=== PATIENT | female | born 1985 | race Caucasian/White ===

== ENCOUNTER 2016-06-29 06:00 | Inpatient (IN) | payer BC ==
[2016-06-29] MEDS ORDERED: CARBOPROST TROMETHAMINE 250 MCG/ML 1 ML AMP IM PRN (06:43)
[2016-06-29] MEDS ORDERED: LIDOCAINE 1% (PF) 10 MG/ML (30 ML SDV) SQ PRN (06:43)
[2016-06-29] MEDS ORDERED: OXYTOCIN 10 UNIT/ML 1 ML VIAL IM PRN (06:43)
[2016-06-29] MEDS ORDERED: METHYLERGONOVINE 0.2 MG/ML 1 ML AMP IM PRN (06:43)
[2016-06-29] MEDS ORDERED: TERBUTALINE 1 MG/ML VIAL SQ PRN (06:43)
[2016-06-29] MEDS ORDERED: OXYTOCIN 30 UNITS/500 ML NS 30 UNIT in SALINE 1 500ML.BAG IV SCH (06:45)
[2016-06-29 06:52] VITALS: BMI 40.0
[2016-06-29] MEDS: LACTATED RINGERS 1,000 ML IV SCH ×4 (06:54→23:49)
[2016-06-29 07:17] LABS: Basophils % (A) 0 %; CH 33.7; CHCM 36.4; Eosinophils # (A) 0.1 k/uL (0-0.7); Eosinophils % (A) 1 %; HCT 32.9 % (34.0-46.0); HDW 3.33; HGB 11.8 gm/dL (11.4-16.0); Luc # (Auto) 0.37; Luc % (Auto) 4; Lymphocytes # (A) 2.1 k/uL (1.0-4.8); Lymphocytes % (A) 24 %; MCH 33.4 pg (25.0-35.0); MCHC 35.8 g/dL (31.0-37.0); MCV 93.2 fL (80.0-100.0); Mean Platelet Volume 9.1; Monocytes # (A) 0.4 k/uL (0-1.0); Monocytes % (A) 4 %; Neutrophils % (A) 67 %; RBC 3.53 m/uL (3.80-5.40); RDW 13.8 % (11.5-15.5); WBC 8.9 k/uL (3.8-10.6); WBC (Perox) 9.58
[2016-06-29 07:27] LABS: Glucose,Whole Blood 92 mg/dL (75-99)
[2016-06-29] MEDS ORDERED: BUTORPHANOL 1 MG/ML 1 ML VIAL IV PRN (09:38)
--- NOTE | 2016-06-29 09:45 | P.HPOB ---
History of Present Illness H&P Date: 06/29/16 Chief Complaint: 39-5/7 weeks, gestational diabetes, induction The patient is a 30-year-old 1 para 0 admitted at 39-5/7 weeks as established by last menstrual period and confirmed by a week ultrasound per she is admitted for induction of labor with a relatively favorable cervix. Her has been complicated by gestational diabetes which has been well controlled with diet alone. She additionally was ultimately diagnosed with -induced hypertension which did not require medications. She is also known to be Rh- and received RhoGAM at 28 weeks. On labor and delivery, all signs are reassuring. Group B strep status is negative. Obstetrical history: 1 para 0 with current statistics listed above. EDC of 07/01/2016 was established by last menstrual period and confirmed by 8 week ultrasound. Laboratory workup demonstrates a blood type of O- with a negative antibody screen. Rubella status is immune. Early Glucola was significantly elevated making the diagnosis of gestational diabetes. Group B strep status is negative. Gynecologic history: Unremarkable with no history of any infections to include STDs. Review of Systems Review of systems is confined to history of present illness. Past Medical History Past Medical History: Supraventricular Tachycardia (SVT) Additional Past Medical History / Comment(s): Gestational Diabetes 12/19, History of Any Multi-Drug Resistant Organisms: None Reported Past Surgical History: No Surgical Hx Reported Past Anesthesia/Blood Transfusion Reactions: No Reported Reaction Past Psychological History: Anxiety Smoking Status: Never smoker Past Alcohol Use History: None Reported Past Drug Use History: None Reported - Past Family History Father Family Medical History: Diabetes Mellitus, Hypertension Mother Family Medical History: Mitral Valve Prolapse (MVP) Brother(s) Family Medical History: Myocardial Infarction ([place]) Medications and Allergies Home Medications Medication Instructions Recorded Confirmed Type Pnv with Ca,No.72/Iron/FA 1 tab PO DAILY 12/26/15 06/29/16 History [ Plus Tablet] Allergies Allergy/AdvReac Type Severity Reaction Status Date / Time No Known Allergies Allergy Verified 06/29/16 06:42 Exam - Vital Signs Vital signs: Vital Signs Temp Pulse Resp BP 06/29/16 06:44 97.2 F L 115 H 16 159/105 Intake and Output 06/28/16 06/29/16 06/29/16 22:59 06:59 14:59 Other: Weight 102.512 kg In general, this is a well-developed, mildly obese white female in no acute distress. Her heart has a regular rhythm and rate without murmur. Her lungs are clear to auscultation bilaterally in all johnson. Her abdomen is gravid, nondistended, has normal active bowel sounds, is soft, nontender, and without any palpable masses aside from the uterine fundus. Her extremities without any cyanosis, clubbing, or edema and are nontender to palpation bilaterally. Digital cervical examination on straights her cervix to be 2-3 cm dilated, 70% effaced, with the vertex in presentation at -2-3 station. Artificial rupture of membranes is carried out demonstrating a small amount of clear fluid. Results Result Diagrams: 06/29/16 06:58 Abnormal Lab Results - Last 24 Hours (Table) 06/29/16 Range/Units 06:58 RBC 3.53 L (3.80-5.40) m/uL Hct 32.9 L (34.0-46.0) % Assessment and Plan (1) Term Status: Acute (2) Gestational diabetes Status: Acute Plan: The patient is admitted for induction of labor. She does understand that the conditions are somewhat elective despite her diabetes. She also was the made to understand that the risk for section may be slightly higher under the circumstances. She will have close maternal and surveillance and expectant management will be practiced. She is a good candidate for either IV or epidural analgesia, whichever she may choose.
[2016-06-29] MEDS ORDERED: BUPIVACAINE (PF) 0.25% 30 ML VIAL ONE (16:57)
[2016-06-29] MEDS ORDERED: fentaNYL (PF) 50 MCG/ML 5 ML AMP ONE (16:57)
[2016-06-29] MEDS ORDERED: SODIUM CHLORIDE 0.9% 100 ML BAG ONE (16:57)
[2016-06-29] MEDS ORDERED: BUPIVACAINE (PF) 0.25% 25 ML, fentaNYL (PF) 200 MCG in SODIUM CHLORIDE 0.9% 71 ML EPIDURAL ONE (17:28)
[2016-06-29] MEDS ORDERED: ceFAZolin 2 GM in SODIUM CHLORIDE 0.9% 100 ML IVPB ONE (20:36)
[2016-06-29] MEDS ORDERED: CITRIC ACID-SODIUM CITRATE 15 ML CUP PO ONE (20:36)
[2016-06-29] MEDS ORDERED: PHENYLEPHRINE-0.9% NACL SYG 1 MG/10 ML SYRINGE ONE (20:59)
[2016-06-29] MEDS ORDERED: ceFAZolin 1,000 MG VIAL ONE (20:59)
[2016-06-29] MEDS ORDERED: KETOROLAC 30 MG/ML 1 ML VIAL ONE (20:59)
[2016-06-29] MEDS ORDERED: MORPHINE SULFATE (PF) 0.3 MG/0.3 ML SYR ONE (20:59)
[2016-06-29] MEDS ORDERED: OXYTOCIN 10 UNIT/ML 1 ML VIAL IM ONE (20:59)
[2016-06-29] MEDS ORDERED: NALBUPHINE 10 MG/ML AMPUL ONE (20:59)
[2016-06-29] MEDS ORDERED: ONDANSETRON 4 MG/2 ML VIAL ONE (20:59)
[2016-06-29] MEDS ORDERED: NALOXONE 0.4 MG/ML 1 ML VIAL IV PRN ×2 (21:24→22:01)
[2016-06-29] MEDS ORDERED: MORPHINE SULFATE 4 MG/ML SYRINGE IVP PRN (21:24)
[2016-06-29] MEDS ORDERED: diphenhydrAMINE 50 MG/ML 1 ML VIAL IVP PRN ×3 (21:24→22:01)
[2016-06-29] MEDS ORDERED: ONDANSETRON 4 MG/2 ML VIAL IVP PRN ×2 (21:24→22:01)
[2016-06-29] MEDS ORDERED: ZOLPIDEM 5 MG TAB PO PRN (22:01)
[2016-06-29] MEDS ORDERED: diphenhydrAMINE 50 MG CAP PO PRN (22:01)
[2016-06-29] MEDS ORDERED: diphenhydrAMINE 25 MG CAP PO PRN (22:01)
[2016-06-29] MEDS ORDERED: KETOROLAC 30 MG/ML 1 ML VIAL IVP PRN (22:01)
[2016-06-29] MEDS ORDERED: METOCLOPRAMIDE 5 MG/ML 2 ML VIAL IVP PRN (22:01)
[2016-06-29] MEDS ORDERED: Acetaminophen-Codeine 300-30mg TAB PO PRN ×2 (22:01)
[2016-06-29] MEDS ORDERED: SIMETHICONE 80 MG CHEWABLE PO PRN (22:01)
[2016-06-29] MEDS ORDERED: DIPH,PERTUS(ACELL)TETVAC-LF 0.5 ML VIAL IM ONE (22:04)
--- NOTE | 2016-06-29 22:10 | P.OP ---
Date of Procedure: 06/29/16 Preoperative Diagnosis: #1. 39-5/7 weeks, induction #2. Gestational diabetes #3. -induced hypertension #4. Arrest of descent Postoperative Diagnosis: Same plus #5. Left occiput transverse #6. Nuchal cord 1 Procedure(s) Performed: Primary low-transverse section Anesthesia: spinal Surgeon: Mingo Smallwood Central Office Supervisor #1: Yu Antonio Estimated Blood Loss (ml): 800 IV fluids (ml): 800 Urine output (ml): 200 Pathology: other (Placenta) Condition: stable Disposition: floor Operative Findings: Preoperatively, the patient ultimately did reach complete with the head remaining at -2 station. On examination, the head sutures were noted to be overriding and the patient was thought to have a contracted pelvis. She was unable to move the baby at all with pushing efforts. The decision was made to proceed to the operating room for primary low-transverse section which was carried out in an uncomplicated fashion. She was delivered of a viable 8 lbs. 2 oz. baby boy with Apgars of 8 at 1 minute and 9 at 5 minutes in the left occiput transverse position. There was a nuchal cord 1 which was reduced after delivery of the head. The placenta was delivered manually, intact, and grossly normal with a grossly normal three-vessel cord. The uterus, tubes, and ovaries were entirely normal to inspection. Description of Procedure: The patient was prepped and draped in usual fashion after spinal anesthesia was administered by the anesthesiologist. A Pfannenstiel incision was made and extended into the abdominal cavity without difficulty. The bladder peritoneum was noted to be distal to the site of the incision was left intact. A 2 cm incision was made in the transverse plane of the lower uterine segment to enter the uterus at which time clear fluid was again noted. The incision was extended in both directions bluntly. The head was encountered in the pelvis fairly deeply was elevated up and through the incision and noted to be in the left occiput transverse position. A nuchal cord was noted and reduced. The nose and mouth were thoroughly suctioned. The remainder of the was delivered onto the surgical field where the cord was doubly clamped, cut, and the passed for resuscitative measures with weight and Apgars as noted above. cord blood was collected for the necessity for RhoGAM. A segment of cord was doubly clamped, cut, and set aside should cord gases become necessary. The placenta was delivered manually and intact as above. The uterus was exteriorized and the interior cavity of the uterus swept of any remaining placental or membranous fragments. The margins of the incision were grasped with Haywood clamps and the incision closed in 2 layers. The first layer was a running locking stitch of 0 chromic catgut from margin to margin followed by a running imbricating layer of 0 chromic catgut from margin to margin. Following the 2 layer closure, there was noted to be some bleeding from both angles which was made hemostatic with the several [id number] stitches of 0 chromic catgut. Any small points of bleeding were made hemostatic with the Bovie. The posterior cul-de-sac was then suctioned using a guard. The uterus was replaced within the abdominal cavity and the gutters swept of any remaining blood, fluid, or clot. The incision was again reexamined and found to be hemostatic. The parietal peritoneum was loosely reapproximated in the layer of muscles examined and found to be hemostatic. The fascia was closed with 2 running stitches of 0 Vicryl proceeding from the lateral margins to the midpoint. The subcutaneous tissues were irrigated, made hemostatic with the Bovie, and reapproximated with a running stitch of 30 plain catgut. The skin was reapproximated with a running subcuticular stitch of 4-0 Vicryl from margin to margin followed by half-inch Steri-Strips placed with Mastisol. Estimated blood loss for the entire case was approximately 800 mL. There were no complications. All sponge, instrument, and needle counts were correct. Both mother and infant are resting comfortably in recovery.
[2016-06-30] MEDS: ACETAMINOPHEN TAB 325 MG TAB PO PRN ×2 (03:46→15:19)
[2016-06-30] MEDS: LACTATED RINGERS 1,000 ML IV SCH ×2 (06:32→22:30)
[2016-06-30] MEDS: SENNOSIDES-DOCUSATE SODIUM 1 EACH TAB PO SCH ×2 (08:07→22:31)
[2016-06-30 08:08] LABS: Basophils % (A) 0 %; CH 33.2; CHCM 34.8; Eosinophils % (A) 0 %; HCT 28.4 % (34.0-46.0); HDW 3.22; Luc # (Auto) 0.26; Luc % (Auto) 3; Lymphocytes # (A) 1.1 k/uL (1.0-4.8); Lymphocytes % (A) 10 %; MCHC 35.4 g/dL (31.0-37.0); MCV 96.2 fL (80.0-100.0); Mean Platelet Volume 8.5; Monocytes # (A) 0.4 k/uL (0-1.0); Monocytes % (A) 4 %; Neutrophils # (A) 8.5 k/uL (1.3-7.7); Neutrophils % (A) 83 %; RBC 2.95 m/uL (3.80-5.40); RDW 13.9 % (11.5-15.5); WBC 10.3 k/uL (3.8-10.6); WBC (Perox) 10.51
--- NOTE | 2016-06-30 08:51 | P.PNOBGPC ---
Subjective - Subjective Patient reports: Reports appetite normal, Reports voiding normally, Reports pain well controlled, Reports ambulating normally : doing well, nursing well Objective - Vital Signs Latest vital signs: Vital Signs Temp Pulse Resp BP Pulse Ox 06/30/16 08:00 98.3 F 101 H 16 151/89 06/30/16 03:58 99.9 F H 114 H 16 146/88 06/30/16 02:00 98 06/30/16 00:00 109 H 16 140/77 98 06/29/16 23:30 98.0 F 126 H 16 146/77 06/29/16 23:00 122 H 16 155/78 06/29/16 22:45 107 H 16 156/87 06/29/16 22:30 105 H 16 159/77 06/29/16 22:24 97 06/29/16 22:15 127 H 16 116/71 06/29/16 22:00 98.4 F 117 H 16 115/60 06/29/16 21:24 98 Intake and Output 06/29/16 06/30/16 06/30/16 22:59 06:59 14:59 Intake Total 1000 Output Total 1600 125 Balance -1600 875 Intake: Intake, IV Titration 1000 Amount Lactated Ringers 1,000 ml 1000 @ 125 mls/hr IV .Q8H [facility] Rx#:[id number] Output: Urine 125 Uretheral (Che) 125 Estimated Blood Loss 1600 Other: # Voids 60 1 - Exam Lungs: bilateral: normal Chest: Normal S1, Normal S2 Extremities: Present: normal Abdomen: Present: normal appearance, soft. Absent: distention, tenderness Incision: Present: normal, dry, intact Uterus: Present: normal, firm (The uterine fundus is time and nontender below the umbilicus.) - Labs Labs: Abnormal Lab Results - Last 24 Hours (Table) 06/30/16 Range/Units 07:52 RBC 2.95 L (3.80-5.40) m/uL Hgb 10.0 L D (11.4-16.0) gm/dL Hct 28.4 L (34.0-46.0) % Neutrophils # 8.5 H (1.3-7.7) k/uL Assessment and Plan (1) Term Current Visit: Yes Status: Acute Code(s): Z34.80 - ENCOUNTER FOR SUPRVSN OF NORMAL , UNSP TRIMESTER SNOMED Code(s): 10253871 (2) Gestational diabetes Current Visit: Yes Status: Acute Code(s): O24.419 - GESTATIONAL DIABETES MELLITUS IN , UNSP CONTROL SNOMED Code(s): 59347618 (3) S/P section Narrative/Plan: Continue routine postoperative care. Her diet has been advanced to regular and she has been encouraged ambulate in the halls at least 4 times daily if not more. Her IV will be locked but kept in place for the remainder of the day. Possible discharge home tomorrow pending applications. Current Visit: Yes Status: Acute Code(s): Z98.891 - HISTORY OF UTERINE SCAR FROM PREVIOUS SURGERY SNOMED Code(s): 016555141
--- NOTE | 2016-06-30 09:11 | P.PN ---
Progress Note - Text Date: 06/30/2016 Time: 700 The patient is status post section Vital signs stable VAS: 0-10 Patient has no complaints of pain. The patient incurred some minimal itching yesterday, this itching is now subsiding. Pain meds to be managed by service.
[2016-06-30] MEDS: IBUPROFEN 600 MG TAB PO PRN ×2 (11:47→19:48)
[2016-07-01] MEDS: ACETAMINOPHEN TAB 325 MG TAB PO PRN ×2 (00:58→08:29)
[2016-07-01] MEDS: IBUPROFEN 600 MG TAB PO PRN ×2 (06:04→12:40)
[2016-07-01] MEDS: SENNOSIDES-DOCUSATE SODIUM 1 EACH TAB PO SCH ×2 (08:39→17:01)
--- NOTE | 2016-07-01 08:40 | P.DS ---
Providers Date of admission: 06/29/16 06:25 Expected date of discharge: 07/01/16 Attending physician: Mingo Smallwood Primary care physician: Emile Angel - Discharge Diagnosis(es) (1) Term Current Visit: Yes Status: Acute (2) Gestational diabetes Current Visit: Yes Status: Acute (3) S/P section Current Visit: Yes Status: Acute Hospital Course: The patient is a 30-year-old 1 para 0 admitted at 39-5/7 weeks by good dating parameters perches admitted for an induction of labor with favorable cervix. Her has been uncomplicated by gestational diabetes well controlled with diet as well as induce hypertension which did not require any medication. She is also Rh- and received RhoGAM at 28 weeks. On labor and delivery, she had Pitocin started followed by artificial rupture of membranes. She made relatively slow progress throughout the day and ultimately , the diagnosis of arrest of dilation and descent was made. She was taken the operating room where she was delivered of a viable 8 lbs. 2 oz. baby boy with Apgars of 8 at 1 minute and 9 at 5 minutes. Her postoperative course was unremarkable with vital signs remaining stable and her temperature was afebrile throughout. She was deemed stable for discharge by and postoperative day #2. She was discharged home to follow-up in the office in 2 weeks for an incision check and 6 weeks routinely. Discharge instructions included calling for any significantly increased bleeding or foul-smelling lochia, significantly increased fever or abdominal pain, perineal complaints, breast complaints, incisional complaints, or anything else that concerned her. She is additionally instructed to have nothing in the vagina for at least 6 weeks time to include intercourse and to abstain from any heavy lifting over the same period of time. She was last instructed to do no driving until off of all pain medications or 2 weeks' time, whichever came first. She understood her instructions and agrees to follow up as noted above. She was provided with prescription for Tylenol No. 3, 1-2 by mouth every 6 hours when necessary pain, #30 dispensed with no refills. She is additionally to use [id number] analgesic pain medications as necessary and to continue vitamins as she has opted to breast-feed. Maternal blood type is O- and cord blood was sent for evaluation for the necessity of RhoGAM prior to discharge. Rubella status is immune. Discharge hemoglobin and hematocrit were 10.0 and 28.4 respectively. She was advised that iron sulfate daily for a month would be of use. Procedures: #1. Pitocin induction #2. Artificial rupture of membranes #3. Epidural analgesia #4. Primary low-transverse section Patient Condition at Discharge: Good Plan - Discharge Summary New Discharge Prescriptions: Acetaminophen-Codeine 300-30mg [Tylenol #3] 2 tab PO Q6H PRN #30 tablet PRN Reason: Pain Discharge Medication List Pnv with Ca,No.72/Iron/FA [ Plus Tablet] 1 tab PO DAILY 12/26/15 [ History] Acetaminophen-Codeine 300-30mg [Tylenol #3] 2 tab PO Q6H PRN #30 tablet [Rx] Follow up Appointment(s)/Referral(s): Mingo Smallwood MD [STAFF PHYSICIAN] - 2 Weeks Discharge Disposition: HOME SELF-CARE
[2016-07-01 16:30] VITALS: BP 129/81; PULSE 80; RESP 20; TEMP 98.3
== END 2016-07-01 18:50 | disposition home or self-care (01) | DRG 766 ==
LOC: 4FBP 06:25
PROVIDERS: ADMIT Obstetrics & Gynecology; ATTEND Obstetrics & Gynecology
PROC: 10D00Z1 Extraction of Products of Conception, Low, Open Approach (ICD-10-PCS; principal; 2016-06-29 21:00)
PROC: 3E033VJ Introduction of Other Hormone into Peripheral Vein, Percutaneous Approach (ICD-10-PCS; principal; 2016-06-29 21:00)
PROC: 00HU33Z Insertion of Infusion Device into Spinal Canal, Percutaneous Approach (ICD-10-PCS; principal; 2016-06-29 21:00)
PROC: 3E0R3CZ (ICD-10-PCS; principal; 2016-06-29 21:00)
PROC: 10907ZC Drainage of Amniotic Fluid, Therapeutic from Products of Conception, Via Natural or Artificial Opening (ICD-10-PCS; principal; 2016-06-29 21:00)
DX: O24.420 Gestational diabetes mellitus in childbirth, diet controlled (principal); O32.4XX0 Maternal care for high head at term, not applicable or unspecified; O62.0 Primary inadequate contractions; O13.4 Gestational [pregnancy-induced] hypertension without significant proteinuria, complicating childbirth; O62.1 Secondary uterine inertia; O69.81X0 Labor and delivery complicated by cord around neck, without compression, not applicable or unspecified; Z37.0 Single live birth; Z3A.39 39 weeks gestation of pregnancy; O65.1 Obstructed labor due to generally contracted pelvis
CPT/HCPCS: 85025; 88307

== ENCOUNTER 2017-10-26 09:40 | Emergency (ER) | payer BC ==
[2017-10-26 09:51] VITALS: RESP 18; TEMP 98.2
[2017-10-26] MEDS ORDERED: SODIUM CHLORIDE 0.9% 500 ML IV STA (10:17)
--- NOTE | 2017-10-26 10:22 | ED ---
General Adult HPI - General Chief complaint: Allergic Reaction Stated complaint: allergic reaction Time Seen by Provider: 10/26/17 10:06 Source: patient, RN notes reviewed, old records reviewed Mode of arrival: ambulatory Limitations: no limitations - History of Present Illness Initial comments: 31-year-old female presents for evaluation of suspected ALLERGIC reaction. Patient has been taking prednisone for the past 4 days and within the past 24 hours she developed symptoms of right-sided neck and jaw pain as well as right- sided chest pain. Patient's symptoms began at rest. She attributed up her prednisone. She is taking prednisone for inflammation secondary to esophageal injury. She states that one month ago she scratched her esophagus with a potato chip and she's been having intermittent throat pain since that time. She also states that over the past 12-24 hours she developed this right-sided chest pain. No fever or chills. No significant vomiting or diarrhea. No abdominal pain. Describes chest pain as a burning. She which seems to cover the whole right side of her chest had an neck. She has history of palpitations for which she takes nadolol. She is currently on control. No other chronic medical problems. - Related Data Home Medications Medication Instructions Recorded Confirmed Falmina 0.1-20 1 tab PO HS 10/26/17 10/26/17 Nadolol [Corgard] 20 mg PO DAILY 10/26/17 10/26/17 methylPREDNISolone Dose Pack See Taper PO DIRECTED 10/26/17 10/26/17 [Medrol Dose Pack] Previous Rx's Medication Instructions Recorded Omeprazole [PriLOSEC] 20 mg PO AC-BID #60 cap 10/26/17 Allergies Allergy/AdvReac Type Severity Reaction Status Date / Time amoxicillin Allergy Rash/Hives Verified 10/26/17 10:20 Penicillins Allergy Rash/Hives Verified 10/26/17 10:20 sulfamethoxazole Allergy Unknown Verified 10/26/17 10:20 [From Bactrim] trimethoprim [From Bactrim] Allergy Unknown Verified 10/26/17 10:20 Review of Systems ROS Statement: Those systems with pertinent positive or pertinent negative responses have been documented in the HPI. ROS Other: All systems not noted in ROS Statement are negative. Past Medical History Past Medical History: Supraventricular Tachycardia (SVT) Additional Past Medical History / Comment(s): Gestational Diabetes 12/19, History of Any Multi-Drug Resistant Organisms: None Reported Past Surgical History: Section Past Anesthesia/Blood Transfusion Reactions: No Reported Reaction Past Psychological History: Anxiety Smoking Status: Never smoker Past Alcohol Use History: None Reported Past Drug Use History: None Reported - Past Family History Father Family Medical History: Diabetes Mellitus, Hypertension Mother Family Medical History: Mitral Valve Prolapse (MVP) Brother(s) Family Medical History: Myocardial Infarction ([place]) General Exam Limitations: no limitations General appearance: alert, in no apparent distress Head exam: Present: atraumatic, normocephalic Eye exam: Present: normal appearance, PERRL ENT exam: Present: normal exam Neck exam: Present: normal inspection. Absent: tenderness, meningismus Respiratory exam: Present: normal lung sounds bilaterally. Absent: respiratory distress, wheezes, chest wall tenderness Cardiovascular Exam: Present: regular rate, normal rhythm GI/Abdominal exam: Present: soft. Absent: distended, tenderness, guarding Extremities exam: Present: normal inspection. Absent: normal capillary refill, pedal edema Back exam: Present: normal inspection, full ROM. Absent: tenderness Neurological exam: Present: alert, oriented X3 Psychiatric exam: Present: normal affect, normal mood Skin exam: Present: warm, dry, intact. Absent: cyanosis, diaphoretic Course Vital Signs 10/26/17 10/26/17 09:49 11:32 Temperature 98.2 F Pulse Rate 75 82 Respiratory 18 18 Rate Blood Pressure 158/98 129/83 O2 Sat by Pulse 98 98 Oximetry EKG Findings - EKG Comments: EKG Findings:: EKG: Normal sinus rhythm, rate of 82, ID interval 154, QRS duration 82, QT 340, QTC 397, no ST segment elevation or depression Medical Decision Making - Medical Decision Making 31-year-old female presenting with right-sided neck and throat pain as well as right-sided chest pain. Symptoms present for approximately 12 hours prior to arrival. EKG is nonischemic. Chest x-ray negative for pneumothorax or airspace disease. Patient's symptoms at the time my evaluation are quite minimal, 2 out of 10. CBC is unremarkable, d-dimer negative, troponin negative. On reevaluation, patient has stable vital signs and is well- appearing. She will start proton pump inhibitor and follow up with gastroenterology at the chance this is esophageal in nature. She will be present with development of fever or worsening pain. Dyspnea. Or lower extremity swelling. - Lab Data Result diagrams: 10/26/17 10:26 10/26/17 10:26 Lab Results 10/26/17 10/26/17 10/26/17 Range/Units 10:26 10: 10:26 WBC 9.6 (3.8-10.6) k/uL RBC 4.97 (3.80-5.40) m/uL Hgb 15.4 (11.4-16.0) gm/dL Hct 43.7 (34.0-46.0) % MCV 88.0 (80.0-100.0) fL MCH 31.0 (25.0-35.0) pg MCHC 35.2 (31.0-37.0) g/dL RDW 12.6 (11.5-15.5) % Plt Count 278 (150-450) k/uL Neutrophils % (Manual) 77 % Lymphocytes % (Manual) 18 % Monocytes % (Manual) 5 % Neutrophils # (Manual) 7.39 (1.3-7.7) k/uL Lymphocytes # (Manual) 1.73 (1.0-4.8) k/uL Monocytes # (Manual) 0.48 (0-1.0) k/uL Nucleated RBCs 0 (0-0) /100 WBC Anisocytosis (manual) Present PT (9.0-12.0) sec INR (<1.2) APTT (22.0-30.0) sec D-Dimer (<0.60) mg/L FEU Sodium 141 (137-145) mmol/L Potassium 4.2 (3.5-5.1) mmol/L Chloride 106 (98-107) mmol/L Carbon Dioxide 23 (22-30) mmol/L Anion Gap 12 mmol/L BUN 16 (7-17) mg/dL Creatinine 0.71 (0.52-1.04) mg/dL Est GFR (CKD-EPI)AfAm >90 (>60 ml/min/1.73 sqM) Est GFR (CKD-EPI)NonAf >90 (>60 ml/min/1.73 sqM) Glucose 92 (74-99) mg/dL Calcium 9.5 (8.4-10.2) mg/dL Magnesium 1.9 (1.6-2.3) mg/dL Total Bilirubin 0.7 (0.2-1.3) mg/dL AST 15 (14-36) U/L ALT 26 (9-52) U/L Alkaline Phosphatase 55 (38-126) U/L Total Creatine Kinase 30 (30-135) U/L CK-MB (CK-2) 0.3 (0.0-2.4) ng/mL CK-MB (CK-2) Rel Index 1.0 Troponin I <0.012 (0.000-0.034) ng/mL Total Protein 7.4 (6.3-8.2) g/dL Albumin 4.5 (3.5-5.0) g/dL Lipase 129 (23-300) U/L Urine HCG, Qual (Not Detectd) 10/26/17 10/26/17 Range/Units 10:26 10:30 WBC (3.8-10.6) k/uL RBC (3.80-5.40) m/uL Hgb (11.4-16.0) gm/dL Hct (34.0-46.0) % MCV (80.0-100.0) fL MCH (25.0-35.0) pg MCHC (31.0-37.0) g/dL RDW (11.5-15.5) % Plt Count (150-450) k/uL Neutrophils % (Manual) % Lymphocytes % (Manual) % Monocytes % (Manual) % Neutrophils # (Manual) (1.3-7.7) k/uL Lymphocytes # (Manual) (1.0-4.8) k/uL Monocytes # (Manual) (0-1.0) k/uL Nucleated RBCs (0-0) /100 WBC Anisocytosis (manual) PT 10.3 (9.0-12.0) sec INR 1.1 (<1.2) APTT 24.1 (22.0-30.0) sec D-Dimer 0.18 (<0.60) mg/L FEU Sodium (137-145) mmol/L Potassium (3.5-5.1) mmol/L Chloride (98-107) mmol/L Carbon Dioxide (22-30) mmol/L Anion Gap mmol/L BUN (7-17) mg/dL Creatinine (0.52-1.04) mg/dL Est GFR (CKD-EPI)AfAm (>60 ml/min/1.73 sqM) Est GFR (CKD-EPI)NonAf (>60 ml/min/1.73 sqM) Glucose (74-99) mg/dL Calcium (8.4-10.2) mg/dL Magnesium (1.6-2.3) mg/dL Total Bilirubin (0.2-1.3) mg/dL AST (14-36) U/L ALT (9-52) U/L Alkaline Phosphatase (38-126) U/L Total Creatine Kinase (30-135) U/L CK-MB (CK-2) (0.0-2.4) ng/mL CK-MB (CK-2) Rel Index Troponin I (0.000-0.034) ng/mL Total Protein (6.3-8.2) g/dL Albumin (3.5-5.0) g/dL Lipase (23-300) U/L Urine HCG, Qual Not Detected (Not Detectd) Disposition Clinical Impression: Chest pain Disposition: HOME SELF-CARE Condition: Good Instructions: Chest Pain (ED) Prescriptions: Omeprazole [PriLOSEC] 20 mg PO AC-BID #60 cap Is patient prescribed a controlled substance at d/c from ED?: No Referrals: Emile Angel DO [Primary Care Provider] - 1-2 days Laurie Su MD [STAFF PHYSICIAN] - 1-2 days Time of Disposition: 12:06
[2017-10-26 10:58] LABS: ALT 26 U/L (9-52); AST 15 U/L (14-36); Albumin 4.5 g/dL (3.5-5.0); Alkaline Phosphatase 55 U/L (38-126); Anion Gap 12 mmol/L; Blood Urea Nitrogen 16 mg/dL (7-17); Calcium 9.5 mg/dL (8.4-10.2); Carbon Dioxide 23 mmol/L (22-30); Chloride 106 mmol/L (98-107); Glucose 92 mg/dL (74-99); HCT 43.7 % (34.0-46.0); HGB 15.4 gm/dL (11.4-16.0); Lipase 129 U/L (23-300); MCHC 35.2 g/dL (31.0-37.0); Magnesium 1.9 mg/dL (1.6-2.3); Platelet Count 278 k/uL (150-450); Potassium 4.2 mmol/L (3.5-5.1); RBC 4.97 m/uL (3.80-5.40); RDW 12.6 % (11.5-15.5); Sodium 141 mmol/L (137-145); Total Bilirubin 0.7 mg/dL (0.2-1.3); Total Protein 7.4 g/dL (6.3-8.2); WBC 9.6 k/uL (3.8-10.6)
[2017-10-26 11:02] LABS: D-Dimer 0.18 mg/L FEU (<0.60); INR 1.1 (<1.2); Partial Thromboplastin Time 24.1 sec (22.0-30.0); Prothrombin Time 10.3 sec (9.0-12.0)
[2017-10-26 11:16] LABS: Creatine Kinase 30 U/L (30-135)
[2017-10-26 11:24] LABS: Lymphocytes # (M) 1.73 k/uL (1.0-4.8); Monocytes # (M) 0.48 k/uL (0-1.0); Neutrophils # (M) 7.39 k/uL (1.3-7.7); Neutrophils % (M) 77 %; Nucleated Red Blood Cells 0 /100 WBC (0-0); Total Cells Counted 100
[2017-10-26 11:25] LABS: Anisocytosis (M) Present
[2017-10-26 11:30] LABS: Creatine Kinase MB 0.3 ng/mL (0.0-2.4); Troponin I <0.012 ng/mL (0.000-0.034)
[2017-10-26 11:33] VITALS: BP 129/83; PULSE 82
--- NOTE | 2017-10-26 11:39 | XR ---
EXAMINATION TYPE: XR chest 2V DATE OF EXAM: 10/26/2017 COMPARISON: 02/05/2017 HISTORY: Chest pain TECHNIQUE: Frontal and lateral views of the chest are obtained. FINDINGS: There is no focal air space opacity, pleural effusion, or pneumothorax seen. The cardiac silhouette size is within normal limits. The osseous structures are intact. IMPRESSION: No acute cardiopulmonary process.
== END 2017-10-26 12:17 | disposition home or self-care (01) ==
LOC: EC 09:40
DX: R07.9 Chest pain, unspecified (principal); M54.2 Cervicalgia; R68.84 Jaw pain; R07.0 Pain in throat; Z79.3 Long term (current) use of hormonal contraceptives; Z79.52 Long term (current) use of systemic steroids; Z79.899 Other long term (current) drug therapy; Z88.0 Allergy status to penicillin; Z88.1 Allergy status to other antibiotic agents; Z88.2 Allergy status to sulfonamides
CPT/HCPCS: 36415; 71046; 80053; 81025; 82550; 82553; 83690; 83735; 84484; 85025; 85379; 85610; 85730; 93005; 96360; 96361; 96374; 96375; 99284

== ENCOUNTER → 2017-12-08 | Outpatient (CLI) | payer BC ==
--- NOTE | 2017-12-08 09:39 | CT ---
EXAMINATION TYPE: CT soft tissue neck wo con DATE OF EXAM: 12/08/2017 COMPARISON: None HISTORY: sore throat CT DLP: 515.8 mGycm CONTRAST: Patient injected with 0 mL of Isovue 300. TECHNIQUE: Axial images at 3 mm thick sections. Reconstructed images in the coronal plane and sagitt al plane are reviewed. FINDINGS: Limited CT sections are obtained the lung apices. The lung apices appear clear. CT neck: The torus tubarius and fossa of Rosenmuller are normal. Cryptographic Machine Operator spaces are normal. Para nasal sinuses and mastoid air cells are clear. Parotid glands appear normal and symmetrical. Submandibular glands, are normal. Parapharyngeal spac es are normal. No suspicious adenopathy is evident. The hypopharynx appears within normal limits. Vocal cord level appear symmetrical. Subglottic airway is unremarkable. Thyroid as visualized is normal. There are scattered small lymph nodes present bilaterally. No enlar ged lymphadenopathy is evident. Clavicular region appears normal. Osseous structures are normal. Disc heights appear preserved. IMPRESSIONS: 1. No suspicious acute changes soft tissue neck.
== END | disposition home or self-care (01) ==
LOC: RADCTMAIN 06:53
PROVIDERS: ATTEND Otolaryngology
DX: R07.0 Pain in throat (principal); Z88.0 Allergy status to penicillin; Z88.2 Allergy status to sulfonamides
CPT/HCPCS: 70490

== ENCOUNTER → 2018-05-13 | Outpatient (CLI) | payer BC ==
--- NOTE | 2018-05-13 10:51 | US ---
EXAMINATION TYPE: US thyroid st tissue head/neck DATE OF EXAM: 05/13/2018 COMPARISON: NONE CLINICAL HISTORY: E04.1 THYROID NODULE. GLAND SIZE: Right Lobe: 5.3 x 1.8 x 1.3 cm Overall Parenchyma: homogenous Left Lobe: 4.4 x 1.3 x 1.7 cm Overall Parenchyma: homogeneous Isthmus Thickness: 0.5 cm NODULES RIGHT: # of nodules measured on right: 1 1. 0.7 X 0.4 x 0.5 cm anechoic cystic nodule at the mid pole with well-defined margins. This nodul e is as tall as it is wide and shows no intranodular vascularity. No prior LEFT: # of nodules measured on left: 2 1. 0.6 X 0.4 x 0.6 cm anechoic cystic nodule at the upper pole with well-defined margins. This nod ule is wider than tall and shows no intranodular vascularity. No prior 2. 0.5 X 0.4 x 0.4 cm anechoic cystic nodule at the upper pole with well-defined margins. This nodu le is taller than wide and shows no intranodular vascularity.3 No prior The above bilateral nodules demonstrate inspissated colloid with common tail artifact indicative of b enign colloid cysts. ISTHMUS: # of nodules measured in the isthmus: 0 Bilateral neck scanned, no evidence of lymphadenopathy. IMPRESSION: Benign bilateral subcentimeter colloid cysts.
== END ==
LOC: RADUSWWP 09:23
PROVIDERS: ATTEND Otolaryngology
DX: E04.1 Nontoxic single thyroid nodule (principal)
CPT/HCPCS: 76536

== ENCOUNTER → 2020-01-18 | Outpatient (CLI) | payer BC ==
--- NOTE | 2020-01-18 16:23 | US ---
EXAMINATION TYPE: US thyroid st tissue head/neck DATE OF EXAM: 01/18/2020 COMPARISON: 05/13/2018 CLINICAL HISTORY: E04.1 THYROID NODULE. GLAND SIZE: Right Lobe: 5.4 x 1.6 x 1.4 cm Overall Parenchyma: homogenous Left Lobe: 4.5 x 1.2 x 1.5 cm Overall Parenchyma: homogeneous Isthmus Thickness: 0.6 cm NODULES RIGHT: # of nodules measured on right: 2 1. 0.7 X 0.5 x 0.5 cm anechoic cystic nodule at the lower pole with well-defined margins. This nod ule is wider than tall and shows no intranodular vascularity. Prior size: 0.7 x 0.4 x 0.5 cm LEFT: # of nodules measured on left: 2 1. 0.7 X 0.4 x 0.6 cm anechoic cystic nodule at the upper pole with well-defined margins. This nod ule is wider than tall and shows no intranodular vascularity. Prior size: 0.6 x 0.4 x 0.6 cm 2. 0.5 X 0.4 x 0.5 cm anechoic cystic nodule at the upper pole with well-defined margins. This nodu le is wider than tall and shows no intranodular vascularity. Prior size: 0.5 x 0.4 x 0.4 cm ISTHMUS: # of nodules measured in the isthmus: 0 Bilateral neck scanned, no evidence of lymphadenopathy. IMPRESSION: 1. Stable thyroid nodules
== END | disposition home or self-care (01) ==
LOC: RADUSWWP 10:46
PROVIDERS: ATTEND Otolaryngology
DX: E04.2 Nontoxic multinodular goiter (principal); Z88.0 Allergy status to penicillin; Z88.2 Allergy status to sulfonamides
CPT/HCPCS: 76536

== ENCOUNTER → 2023-04-24 | Outpatient (CLI) | payer BC ==
[2023-04-24 16:22] LABS: ALT 9 U/L (8-44); AST 12 U/L (13-35); Albumin 4.4 g/dL (3.8-4.9); Albumin/Globulin Ratio 1.52 Ratio (1.60-3.17); Alkaline Phosphatase 58 U/L (41-126); BUN/Creat Ratio 16.43 Ratio (12.00-20.00); Blood Urea Nitrogen 11.5 mg/dL (9.0-27.0); Calcium 9.8 mg/dL (8.7-10.3); Carbon Dioxide 22.7 mmol/L (21.6-31.8); Chloride 104 mmol/L (96-109); Chol/HDL Ratio 3.15 Ratio; Globulin 2.9 g/dL (1.6-3.3); Glucose 97 mg/dL (70-110); LDL Cholesterol,Calculated 92.6 mg/dL (0.0-131.0); Potassium 4.5 mmol/L (3.5-5.5); Sodium 139 mmol/L (135-145); Total Bilirubin 0.5 mg/dL (0.3-1.2); Total Protein 7.3 g/dL (6.2-8.2)
== END | disposition home or self-care (01) ==
LOC: LABWHC1 10:46
DX: E66.3 Overweight (principal); Z68.29 Body mass index [BMI] 29.0-29.9, adult
CPT/HCPCS: 36415; 80053; 80061; 83036; 84443

== ENCOUNTER → 2023-05-10 | Outpatient (CLI) | payer BC ==
--- NOTE | 2023-05-10 21:53 | MR ---
EXAMINATION TYPE: MR brain wo con DATE OF EXAM: 05/10/2023 8:14 PM CLINICAL INDICATION:Female, 37 years old with history of G43.909 MIGRAINE; PHH, Migraines with visual disturbances COMPARISON: None. TECHNIQUE: Multi planar, multi sequence imaging was performed through the brain including: T1, T2, In version recovery, Diffusion weighted imaging, and gradient echo imaging. No gadolinium was given. FINDINGS: The jj-white junctions, ventricular system, basal cisterns appear unremarkable. Midline structures show no abnormality. Diffusion-weighted imaging shows no evidence of restricted diffusion. The suscep tibility weighted images do not reveal any evidence for micro-hemorrhage. The bone marrow signal is within normal limits. Paranasal sinuses and mastoid air cells: No significant paranasal sinus disease. Visualized orbits: Orbital contents are intact. IMPRESSION: No evidence of intracranial mass or acute/subacute infarct.
== END | disposition home or self-care (01) ==
LOC: RADMRIMAIN 19:11
PROVIDERS: ATTEND Family Medicine
DX: G43.909 Migraine, unspecified, not intractable, without status migrainosus (principal); H53.9 Unspecified visual disturbance
CPT/HCPCS: 70551

== ENCOUNTER 2024-09-30 18:52 | Emergency (ER) | payer BC ==
[2024-09-30 18:56] VITALS: TEMP 97.5
[2024-09-30] MEDS: SODIUM CHLORIDE 0.9% 1,000 ML IV STA (19:31)
[2024-09-30 19:34] LABS: Basophils # (A) 0.04 10*3/uL (0.00-0.10); Basophils % (A) 0.5 %; Eosinophils # (A) 0.04 10*3/uL (0.04-0.35); Eosinophils % (A) 0.5 %; HCT 41.6 % (37.2-46.3); HGB 14.9 g/dL (12.0-15.0); Lymphocytes # (A) 3.16 10*3/uL (0.90-5.00); Lymphocytes % (A) 40.8 %; MCH 31.3 pg (27.0-32.0); MCHC 35.8 g/dL (32.0-37.0); MCV 87.4 fL (80.0-97.0); Mean Platelet Volume 9.7 fL (9.5-12.2); Monocytes # (A) 0.51 10*3/uL (0.20-1.00); Monocytes % (A) 6.6 %; Neutrophils # (A) 3.96 10*3/uL (1.80-7.70); Neutrophils % (A) 51.2 %; Platelet Count 257 10*3/uL (140-440); RBC 4.76 10*6/uL (4.10-5.20); RDW 11.6 % (11.5-14.5); WBC 7.74 10*3/uL (4.50-10.00)
[2024-09-30 19:46] LABS: ALT 14 U/L (4-34); AST 18 U/L (14-36); African American GFR (CKD) >90 (>60 ml/min/1.73 sqM); Albumin 4.4 g/dL (3.5-5.0); Alkaline Phosphatase 54 U/L (38-126); Anion Gap 10 mmol/L; Blood Urea Nitrogen 11 mg/dL (7-17); Calcium 10.3 mg/dL (8.4-10.2); Carbon Dioxide 20 mmol/L (22-30); Chloride 107 mmol/L (98-107); Glucose 109 mg/dL (74-99); Non-African American GFR(CKD) >90 (>60 ml/min/1.73 sqM); Potassium 4.3 mmol/L (3.5-5.1); Sodium 137 mmol/L (137-145); Total Bilirubin 0.6 mg/dL (0.2-1.3); Total Protein 7.4 g/dL (6.3-8.2)
[2024-09-30 19:47] LABS: Partial Thromboplastin Time 23.5 sec (22.0-30.0); Prothrombin Time 10.7 sec (10.0-12.5)
--- NOTE | 2024-09-30 20:17 | XR ---
EXAMINATION TYPE: XR chest 2V DATE OF EXAM: 09/30/2024 8:09 PM COMPARISON: Chest radiographs from 05/27/2022 TECHNIQUE: XR chest 2V Frontal and lateral views of the chest. CLINICAL INDICATION:Female, 38 years old with history of dysrhythmia; FINDINGS: Lungs/Pleura: There is no evidence of pleural effusion, focal consolidation, or pneumothorax. Pulmonary vascularity: Unremarkable. Heart/mediastinum: Cardiomediastinal silhouette is unremarkable. Musculoskeletal: No acute osseous pathology. IMPRESSION: No acute cardiopulmonary disease/process. [facility], , 09/30/2024 8:14 PM
--- NOTE | 2024-09-30 21:08 | ED ---
Arrhythmia/Palpitations HPI - General Chief Complaint: Arrhythmia/Palpitations Stated Complaint: Irrg Heartbeat Time Seen by Provider: 09/30/24 19:00 Source: patient Mode of arrival: ambulatory Limitations: no limitations - History of Present Illness Initial Comments: 38-year-old female with past medical history of SVT who presents emergency d epartment reporting palpitations. States it has been going on for the past couple of weeks. Today the symptoms have been more significant. She feels as if she cannot breathe. She does have a history of frequent PVCs and even bigeminy. Previously followed with Dr. Thomas and recently has now switched to a Dr. Stark who is out of [place]. Patient takes nadolol 20 mg twice a day. She also takes Cardizem 120. She was increased to 240 however she states she could not tolerate this dose and therefore back down to 120. She did wear Holter monitor for the new equal opportunity representative however has not received results. Due to the persistent symptoms patient came into the emergency department today. Denies concern for . Admits nausea without vomiting. No other alleviating, precipitating or modifying factors - Related Data Home Medications Medication Instructions Recorded Confirmed Falmina 0.1-20 1 tab PO HS 10/26/17 10/26/17 methylPREDNISolone Dose Pack See Taper PO DIRECTED 10/26/17 10/26/17 [Medrol Dose Pack] nadoloL [Corgard] 20 mg PO DAILY 10/26/17 10/26/17 Previous Rx's Medication Instructions Recorded Omeprazole [PriLOSEC] 20 mg PO AC-BID #60 cap 10/26/17 dilTIAZem HCL [dilTIAZem HCL 24Hr 180 mg PO DAILY #30 cap 09/30/24 ER (Xr)] Allergies Allergy/AdvReac Type Severity Reaction Status Date / Time amoxicillin Allergy Rash/Hives Verified 05/27/22 15:15 azithromycin Allergy Unknown Verified 05/27/22 15:15 Penicillins Allergy Rash/Hives Verified 05/27/22 15:15 sulfamethoxazole Allergy Unknown Verified 05/27/22 15:15 [From Bactrim] trimethoprim [From Bactrim] Allergy Unknown Verified 05/27/22 15:15 Review of Systems ROS Statement: Those systems with pertinent positive or pertinent negative responses have been documented in the HPI. ROS Other: All systems not noted in ROS Statement are negative. Past Medical History Past Medical History: GERD/Reflux, Supraventricular Tachycardia (SVT) Additional Past Medical History / Comment(s): Gestational Diabetes 12/19, History of Any Multi-Drug Resistant Organisms: None Reported Past Surgical History: Section Past Anesthesia/Blood Transfusion Reactions: No Reported Reaction Past Psychological History: Anxiety Past Alcohol Use History: None Reported Past Drug Use History: None Reported - Past Family History Father Family Medical History: Diabetes Mellitus, Hypertension Mother Family Medical History: Mitral Valve Prolapse (MVP) Brother(s) Family Medical History: Myocardial Infarction (AL) General Exam Limitations: no limitations General appearance: alert, in no apparent distress Head exam: Present: atraumatic, normocephalic, normal inspection Eye exam: Present: normal appearance, PERRL, EOMI. Absent: scleral icterus, conjunctival injection, periorbital swelling ENT exam: Present: normal exam, mucous membranes moist Neck exam: Present: normal inspection. Absent: tenderness, meningismus, lymphadenopathy Respiratory exam: Present: normal lung sounds bilaterally. Absent: respiratory distress, wheezes, rales, rhonchi, stridor Cardiovascular Exam: Present: regular rate, irregular rhythm, normal heart sounds. Absent: systolic murmur, diastolic murmur, rubs, gallop, clicks GI/Abdominal exam: Present: soft, normal bowel sounds. Absent: distended, tenderness, guarding, rebound, rigid Extremities exam: Present: normal inspection, full ROM, normal capillary refill. Absent: tenderness, pedal edema, joint swelling, calf tenderness Back exam: Present: normal inspection Neurological exam: Present: alert, oriented X3, CN II-XII intact Psychiatric exam: Present: normal affect, normal mood Skin exam: Present: warm, dry, intact, normal color. Absent: rash Course Vital Signs 09/30/24 09/30/24 09/30/24 18:54 21:09 21:41 Temperature 97.5 F L Pulse Rate 92 96 84 Respiratory 20 18 18 Rate Blood Pressure 150/91 134/94 132/88 O2 Sat by Pulse 97 96 96 Oximetry Medical Decision Making - Medical Decision Making Was pt. sent in by a medical professional or institution (, PA, LAB SPECIALIST, urgent care, hospital, or jail...) When possible be specific @ -No Did you speak to anyone other than the patient for history (EMS, parent, family, police, friend...)? What history was obtained from this source @ -No Did you review nursing and triage notes (agree or disagree)? Why? @ -I reviewed and agree with nursing and triage notes Were old charts reviewed (outside hosp., previous admission, EMS record, old EKG, old radiological studies, urgent care reports/EKG's, jail records)? Report findings @ -No old charts were reviewed Differential Diagnosis (chest pain, altered mental status, abdominal pain women, abdominal pain men, vaginal bleeding, weakness, fever, dyspnea, syncope, headache, dizziness, GI bleed, back pain, seizure, CVA, palpatations, mental health, musculoskeletal)? @ -Differential Palpitations Ventricular arrhythmias, atrial arrhythmias, myocardial infarction, anemia, thyrotoxicosis, electrolyte imbalance, hypokalemia, pulmonary embolism, pulmonary disease, drugs, alcohol, anxiety, stress.... This is not meant to be an all-inclusive list. EKG interpreted by me (3pts min.). @ -yes and demonstrates sinus rhythm with a rate of 99. PA interval 117. QRS 93. QTc of 388. Multiple PVCs. No acute ST segment elevation X-rays interpreted by me (1pt min.). @ -Yes which demonstrates no acute process CT interpreted by me (1pt min.). @ -None done U/S interpreted by me (1pt. min.). @ -None done What testing was considered but not performed or refused? (CT, X-rays, U/S, labs)? Why? @ -None What meds were considered but not given or refused? Why? @ -None Did you discuss the management of the patient with other professionals (professionals i.e. , PA, LAB SPECIALIST, lab, RT, psych nurse, sr. social media & mobile manager, criminal defense lawyer, t eacher, assignment officer, manager case management)? Give summary @ -I spoke with the on-call equal opportunity representative for Dr. Stark. He recommends that the patient be placed on Cardizem 180 Was smoking cessation discussed for >3mins.? @ -No Was critical care preformed (if so, how long)? @ -No Were there social determinants of health that impacted care today? How? (Homelessness, low income, unemployed, alcoholism, drug addiction, transportation, low edu. Level, literacy, decrease access to med. care, prison, rehab)? @ -No Was there de-escalation of care discussed even if they declined (Discuss DNR or withdrawal of care, Hospice)? DNR status @ -No What co-morbidities impacted this encounter? (DM, HTN, Smoking, COPD, CAD, Cancer, CVA, ARF, Chemo, Hep., AIDS, mental health diagnosis, sleep apnea, morbid obesity)? @ -SVT, multiple PVCs Was patient admitted / discharged? Hospital course, mention meds given and route, prescriptions, significant lab abnormalities, going to OR and other pertinent info. @ -Upon arrival patient seen and evaluated in bed 18. Thorough history and physical exam was performed. Patient placed on continuous pulse ox and cardiac monitoring. Twelve-lead EKG was performed which demonstrates multiple PVCs. Patient does have episodes of bigeminy. Laboratory studies are conducted. I did call and speak with the patient's cardiology office. He recommends that the patient's Cardizem be increased to 180. Patient is given a small dose of Lopressor at this time before discharge as she cannot flower picker her prescription for Cardizem until the morning. She is to call and make an appointment with the cardiology office. Return for any new or worsening symptoms. Patient agreeable to plan she was discharged in stable condition Undiagnosed new problem with uncertain prognosis? @ -No Drug Therapy requiring intensive monitoring for toxicity (Heparin, Nitro, Insulin, Cardizem)? @ -No Were any procedures done? @ -No Diagnosis/symptom? @ -Acute palpitations, multiple PVCs Acute, or Chronic, or Acute on Chronic? @ -UT Uncomplicated (without systemic symptoms) or Complicated (systemic symptoms)? @ -Complicated Side effects of treatment? @ -No Exacerbation, Progression, or Severe Exacerbation? @ -No Poses a threat to life or bodily function? How? (Chest pain, USA, AL, pneumonia, PE, COPD, DKA, ARF, appy, cholecystitis, CVA, Diverticulitis, Homicidal, Suicidal, threat to staff... and all critical care pts) @ -No - Lab Data Result diagrams: 09/30/24 19:28 09/30/24 19:28 Lab Results 09/30/24 09/30/24 09/30/24 Range/Units 19:28 19:28 19:28 WBC 7.74 (4.50-10.00) 10*3/uL RBC 4.76 (4.10-5.20) 10*6/uL Hgb 14.9 (12.0-15.0) g/dL Hct 41.6 (37.2-46.3) % MCV 87.4 (80.0-97.0) fL MCH 31.3 (27.0-32.0) pg MCHC 35.8 (32.0-37.0) g/dL Plt Count 257 (140-440) 10*3/uL MPV 9.7 (9.5-12.2) fL Immature Gran % (Auto) 0.4 % Neutrophils % 51.2 % Lymphocytes % 40.8 % Monocytes % 6.6 % Eosinophils % 0.5 % Basophils % 0.5 % Immature Gran # 0.03 (0.00-0.04) 10*3/uL Neutrophils # 3.96 (1.80-7.70) 10*3/uL Lymphocytes # 3.16 (0.90-5.00) 10*3/uL Monocytes # 0.51 (0.20-1.00) 10*3/uL Eosinophils # 0.04 (0.04-0.35) 10*3/uL Basophils # 0.04 (0.00-0.10) 10*3/uL PT 10.7 (10.0-12.5) sec INR 1.0 (<1.2) APTT 23.5 (22.0-30.0) sec Sodium 137 (137-145) mmol/L Potassium 4.3 (3.5-5.1) mmol/L Chloride 107 (98-107) mmol/L Carbon Dioxide 20 L (22-30) mmol/L Anion Gap 10 mmol/L BUN 11 (7-17) mg/dL Creatinine 0.61 (0.52-1.04) mg/dL Est GFR (CKD-EPI)AfAm >90 (>60 ml/min/1.73 sqM) Est GFR (CKD-EPI)NonAf >90 (>60 ml/min/1.73 sqM) Glucose 109 H (74-99) mg/dL Calcium 10.3 H (8.4-10.2) mg/dL Magnesium 2.0 (1.6-2.3) mg/dL Total Bilirubin 0.6 (0.2-1.3) mg/dL AST 18 (14-36) U/L ALT 14 (4-34) U/L Alkaline Phosphatase 54 (38-126) U/L Troponin I (0.000-0.034) ng/mL Total Protein 7.4 (6.3-8.2) g/dL Albumin 4.4 (3.5-5.0) g/dL TSH 2.900 (0.465-4.680) mIU/L 09/30/ Range/Units 19:28 WBC (4.50-10.00) 10*3/uL RBC (4.10-5.20) 10*6/uL Hgb (12.0-15.0) g/dL Hct (37.2-46.3) % MCV (80.0-97.0) fL MCH (27.0-32.0) pg MCHC (32.0-37.0) g/dL Plt Count (140-440) 10*3/uL MPV (9.5-12.2) fL Immature Gran % (Auto) % Neutrophils % % Lymphocytes % % Monocytes % % Eosinophils % % Basophils % % Immature Gran # (0.00-0.04) 10*3/uL Neutrophils # (1.80-7.70) 10*3/uL Lymphocytes # (0.90-5.00) 10*3/uL Monocytes # (0.20-1.00) 10*3/uL Eosinophils # (0.04-0.35) 10*3/uL Basophils # (0.00-0.10) 10*3/uL PT (10.0-12.5) sec INR (<1.2) APTT (22.0-30.0) sec Sodium (137-145) mmol/L Potassium (3.5-5.1) mmol/L Chloride (98-107) mmol/L Carbon Dioxide (22-30) mmol/L Anion Gap mmol/L BUN (7-17) mg/dL Creatinine (0.52-1.04) mg/dL Est GFR (CKD-EPI)AfAm (>60 ml/min/1.73 sqM) Est GFR (CKD-EPI)NonAf (>60 ml/min/1.73 sqM) Glucose (74-99) mg/dL Calcium (8.4-10.2) mg/dL Magnesium (1.6-2.3) mg/dL Total Bilirubin (0.2-1.3) mg/dL AST (14-36) U/L ALT (4-34) U/L Alkaline Phosphatase (38-126) U/L Troponin I <0.012 (0.000-0.034) ng/mL Total Protein (6.3-8.2) g/dL Albumin (3.5-5.0) g/dL TSH (0.465-4.680) mIU/L Disposition Clinical Impression: PVC's (premature ventricular contractions), Palpitations Disposition: HOME SELF-CARE Condition: Stable Instructions (If sedation given, give patient instructions): Heart Palpitations (ED) Additional Instructions: Continue your nadolol as instructed. Your Cardizem will be increased to 180 mg daily. Follow-up with the EP doctor. Your EKG and bedside monitor demonstrated multiple PVCs/bigeminy rhythm. Return for any new or worsening symptoms Prescriptions: dilTIAZem HCL [dilTIAZem HCL 24Hr ER (Xr)] 180 mg PO DAILY #30 cap Is patient prescribed a controlled substance at d/c from ED?: No Referrals: Emile Angel DO [Primary Care Provider] - 1-2 days Time of Disposition: 21:21
[2024-09-30 21:10] VITALS: RESP 18
[2024-09-30] MEDS: METOPROLOL TARTRATE 5 MG/5 ML VIAL IVP STA (21:16)
[2024-09-30 21:42] VITALS: BP 132/88; PULSE 84
== END 2024-09-30 21:43 | disposition home or self-care (01) ==
LOC: EC 18:52
DX: I49.3 Ventricular premature depolarization (principal); Z88.0 Allergy status to penicillin; Z88.1 Allergy status to other antibiotic agents; Z88.2 Allergy status to sulfonamides
CPT/HCPCS: 36415; 71046; 80053; 83735; 84443; 84484; 85025; 85610; 85730; 93005; 96361; 96374; 96375; 99285

== ENCOUNTER → 2024-10-09 | Outpatient (CLI) | payer BC | END | disposition home or self-care (01) | LOC: LABWHC1 08:30 | PROVIDERS: ATTEND Internal Medicine | DX: Z01.818 Encounter for other preprocedural examination (principal); I49.3 Ventricular premature depolarization | CPT/HCPCS: 93005 ==